=== PATIENT | female | born 1940 | race Caucasian/White ===

== ENCOUNTER → 2018-10-26 | Outpatient (CLI) | payer MEDICARE ==
[2018-10-26 11:23] LABS: BILIRUBIN,TOTAL 0.2 MG/DL (0.1-1.0); CALCIUM 9.3 MG/DL (8.5-10.1); CREATININE SERUM 1.01 MG/DL (0.60-1.30); POTASSIUM 4.9 MMOL/L (3.6-5.0); TOTAL PROTEIN 6.9 GM/DL (6.4-8.2)
== END ==
LOC: LAB FS 10:38
PROVIDERS: ATTEND Pediatrics
DX: E11.9 Type 2 diabetes mellitus without complications (principal)
CPT/HCPCS: 36415; 80053; 83036

== ENCOUNTER 2019-01-12 00:06 | Emergency (ER) | payer MEDICARE ==
[~2019-01-12] VITALS: Ht 157.5 cm; Wt 78.9 kg
--- OUTSIDE RECORDS SUMMARY | 2019-01-12 00:13 | XMS REPORT | Continuity of Care Document ---
Author Organization Unknown Address Unknown Phone Unavailable Allergies There is no data. Medications There is no data. Problems There is no data. Procedures There is no data. Results Test Result Range Comprehensive metabolic panel - 10/26/18 10:49 Serum or plasma sodium measurement (moles/volume) 142 mmol/L 135-145 Serum or plasma potassium measurement (moles/volume) 4.9 mmol/L 3.6-5.0 Serum or plasma chloride measurement (moles/volume) 102 mmol/L 98-107 Carbon dioxide 29 mmol/L 21-32 Serum or plasma anion gap determination (moles/volume) 11 mmol/L 5-14 Serum or plasma urea nitrogen measurement (mass/volume) 23 mg/dL 7-18 Serum or plasma creatinine measurement (mass/volume) 1.01 mg/dL 0.60-1.30 Serum or plasma urea nitrogen/creatinine mass ratio 23 NRG Serum or plasma creatinine measurement with calculation of estimated glomerular filtration rate 53 NRG Serum or plasma glucose measurement (mass/volume) 193 mg/dL 70-105 Serum or plasma calcium measurement (mass/volume) 9.3 mg/dL 8.5-10.1 Serum or plasma total bilirubin measurement (mass/volume) 0.2 mg/dL 0.1-1.0 Serum or plasma alkaline phosphatase measurement (enzymatic activity/volume) 81 U/L 40-136 Serum or plasma aspartate aminotransferase measurement (enzymatic activity/volume) 17 U/L 5-34 Serum or plasma alanine aminotransferase measurement (enzymatic activity/volume) 11 U/L 0-55 Serum or plasma protein measurement (mass/volume) 6.9 g/dL 6.4-8.2 Serum or plasma albumin measurement (mass/volume) 4.0 g/dL 3.2-4.5 CALCIUM CORRECTED 9.3 mg/dL 8.5-10.1 Hemoglobin A1c - 10/26/18 10:49 Blood hemoglobin A1C measurement (mass/volume) 8.7 % 4.0-5.6 MEAN BLOOD GLUCOSE 203 % <=126 Encounters ACCT No. Visit Date/Time Discharge Status Pt. Type Provider Facility Loc./Unit Complaint [id number] 10/26/2018 10:38:00 10/26/2018 23:59:59 CLS Outpatient BAIRON BALDERRAMA MD [facility] LAB FS E11.9 [id number] 01/12/2019 00:09:00 ACT Emergency MELLY PRESTON DO [facility] ER FS LEFT SIDE BACK PAIN
--- NOTE | 2019-01-12 00:17 | NUR ---
Pt ambulates to ED 6 without assistance or assistive device. Pt is wearing her home O2 at 2 1/2 L/m. Pt has COPD with prior pneumonia hx requiring her O2 dependence. See triage note.
--- NOTE | 2019-01-12 00:30 | ED Back Pain ---
General Stated Complaint: LEFT SIDE BACK PAIN Source of Information: Patient, RN Notes Reviewed Exam Limitations: No Limitations History of Present Illness Date Seen by Provider: Jan 12, 2019 Time Seen by Provider: 00:29 Location: Other Allergies and Home Medications Allergies Coded Allergies: No Known Drug Allergies (Unverified , 01/12/19) Past Sfogryo-Sltniy-Cnmdln Hx Patient Social History Recent Foreign Travel: No Contact w/Someone Who Travel: No Physical Exam Vital Signs Vital Signs - First Documented 01/12/19 00:17 Temp 98.3 Pulse 101 Resp 24 B/P (MAP) 150/71 (97) Pulse Ox 94 O2 Delivery Nasal Cannula O2 Flow Rate 2.50 Capillary Refill : Height, Weight, BMI Height: '" Weight: lbs. oz. kg; BMI Method: Progress/Results/Core Measures Results/Orders Lab Results Laboratory Tests Test 01/12/19 00:20 Range/Units Urine Color DARK YELLOW Urine Clarity CLEAR Urine pH 5.5 5-9 Urine Specific [place] >=1.030 1.016-1.022 Urine Protein TRACE H NEGATIVE Urine Glucose (UA) NEGATIVE NEGATIVE Urine Ketones TRACE H NEGATIVE Urine Nitrite NEGATIVE NEGATIVE Urine Bilirubin NEGATIVE NEGATIVE Urine Urobilinogen 0.2 NORMAL MG/DL Urine Leukocyte Esterase NEGATIVE NEGATIVE Urine RBC (Auto) TRACE H NEGATIVE Urine RBC 2-5 H /HPF Urine WBC 10-25 H /HPF Urine Squamous Epithelial Cells >50 H /HPF Urine Crystals PRESENT H /LPF Urine Calcium Oxalate Crystals FEW H /LPF Urine Bacteria FEW H /HPF Urine Casts NONE /LPF Urine Mucus NEGATIVE /LPF Urine Culture Indicated NO My Orders Orders - MELLY PRESTON DO Ua Culture If Indicated (01/12/19 00:28) Ketorolac Injection (Toradol Injection) (01/12/19 01:00) Ct Abd/Pelvis Wo(Kidney Stone) (01/12/19 00:59) Ct Lumbar Spine Wo (01/12/19 00:59) Dexamethasone Injection (Decadron Inject (01/12/19 02:30) Hydrocodone/Apap 10/325 Tablet (Lortab 1 (01/12/19 02:30) Medications Given in ED Current Medications Medications Dose Ordered Sig/Micaela Route Start Time Stop Time Status Last Admin Dose Admin Ketorolac Tromethamine 15 mg ONCE ONCE IM 01/12/19 01:00 01/12/19 01:01 DC 01/12/19 01:07 15 MG Vital Signs/I&O 01/12/19 01/12/19 00:17 01:07 Temp 98.3 98.3 Pulse 101 Resp 24 B/P (MAP) 150/71 (97) Pulse Ox 94 O2 Delivery Nasal Cannula O2 Flow Rate 2.50 Departure Impression Primary Impression: Acute left flank pain Additional Impressions: Pancreatic mass Pulmonary nodules/lesions, multiple Disposition: 01 HOME, SELF-CARE Condition: Stable Departure-Patient Inst. Decision time for Depature: 02:23 Referrals: BAIRON BALDERRAMA MD (PCP/Family) Primary Care Physician Patient Instructions: Flank Pain (DC), Multiple Pulmonary Nodules Add. Discharge Instructions: NEED TO CONTACT DR. BALDERRAMA'S OFFICE THIS AM, 01/11,, TO ARRANGE FOLLOW UP/FURTHER EVALUATION OF YOUR ABNORMAL CAT SCAN OBTAINED TONIGHT. Scripts Hydrocodone Bit/Acetaminophen (LORTAB 7.5 MG TABLET) 1 Ea Tablet 1 EA PO Q6H PRN for FLANK PAIN, #20 TAB 0 Refills Prov: MELLY PRESTON DO 01/12/19 MELLY PRESTON DO Jan 12, 2019 00:30
[2019-01-12 00:51] LABS: CLARITY,URINE CLEAR; COLOR,URINE DARK YELLOW; GLUCOSE, URINE (UA) NEGATIVE (NEGATIVE); PH,URINE 5.5 (5-9); PROTEIN,URINE TRACE (NEGATIVE)
[2019-01-12 00:52] LABS: BACTERIA,URINE FEW /HPF; BILIRUBIN,URINE NEGATIVE (NEGATIVE); CALCIUM OXALATE CRYSTALS,UR FEW /LPF; KETONES,URINE TRACE (NEGATIVE); LEUKOCYTE ESTERASE ,URINE NEGATIVE (NEGATIVE); NITRITE,URINE NEGATIVE (NEGATIVE); SQUAMOUS EPITHELIAL CELL,UR >50 /HPF; UROBILINOGEN,URINE 0.2 MG/DL (NORMAL)
[2019-01-12] MEDS ORDERED: KETOROLAC 30 MG/ML VIAL IM ONE (01:00)
[2019-01-12] MEDS ORDERED: ALBU18HF2 (01:22)
[2019-01-12] MEDS ORDERED: ALBU2.5V4 (01:22)
[2019-01-12] MEDS ORDERED: SIMV80TA21 (01:22)
[2019-01-12] MEDS ORDERED: ROPI0.253 (01:22)
[2019-01-12] MEDS ORDERED: LEVO88TA54 (01:22)
[2019-01-12] MEDS ORDERED: GLIM1TAB (01:22)
--- NOTE | 2019-01-12 01:30 | NUR ---
Resting in room with family present, pt is pending all her results.
[2019-01-12] MEDS ORDERED: HYDR-34 PO (02:27)
[2019-01-12] MEDS ORDERED: DEXAMETHASONE 10 MG/ML (DECADRON) 1 ML VIAL IM ONE (02:30)
[2019-01-12] MEDS ORDERED: HYDROcodone/APAP 10 MG/325 MG (LORTAB) TAB PO ONE (02:30)
[2019-01-12 02:38] VITALS: BP 125/56
--- NOTE | 2019-01-12 02:38 | NUR ---
Pt discharged to home after review of home instructions read and discussed. Pt was handed the Hydrocodone Rx.
--- NOTE | 2019-01-12 08:02 | Diagnostic Imaging Report ---
PROCEDURE: CT urinary tract, rule out kidney stone. TECHNIQUE: Multiple contiguous axial images were obtained through the abdomen and pelvis without the use of intravenous contrast. Auto Exposure Controls were utilized during the CT exam to meet ALARA standards for radiation dose reduction. INDICATION: Left lower back pain x2 days. CORRELATION STUDY: None FINDINGS: Bilateral spiculated pulmonary masses noted at the lower lobes. Largest on the left measured approximately 16 mm on the right approximately 17 mm. Findings highly suspicious for pulmonary metastatic disease. Partial visualization of bilateral breast implants. Heart size enlarged. Coronary artery and cardiac valvular calcification. Very small hiatal hernia. Unenhanced liver, spleen, appearing unremarkable. Gallbladder not visualized. There is question approximately 18 mm slightly irregular low-attenuation lesion the pancreas. No definitive peripancreatic inflammatory changes. Additional questionable low-attenuating lesion at the proximal body of the pancreas projecting superiorly measures approximately 17 mm. Some diffuse thinning and atrophic change about the kidneys. No obstructing stone. Dense aortic wall calcification. Infrarenal abdominal aortic aneurysm is present the greatest dimension at 3.9 cm. There does appear to be displaced intimal calcification suggesting chronic dissection. Additional 2.4 cm rounded calcification of the left upper quadrant that may reflect a splenic artery aneurysm. Gastrointestinal tract demonstrates moderate severity fecal retention. No obstruction or inflammation. Colonic diverticulosis is present. No abdominal ascites or free air. No pathological or central retroperitoneal lymph nodes. Urinary bladder decompressed. Uterus absent. IMPRESSION: 1. Bilateral pulmonary nodules highly concerning for pulmonary metastatic disease. 2. Indeterminate low attenuating foci within the pancreas. This finding is nonspecific, possibility of pancreatic neoplasm not excluded. Correlation with postcontrast imaging would be recommended. 3. The infrarenal abdominal aortic aneurysm likely chronic dissection. Maximum dimension just under 4 cm in size. Preliminary interpretation provided by stat rads. Dictated by: Dictated on workstation # [id number]
--- NOTE | 2019-01-12 08:09 | Diagnostic Imaging Report ---
PROCEDURE: CT lumbar spine without contrast. TECHNIQUE: Multiple contiguous axial images were obtained through the lumbar spine without the use of intravenous contrast. Sagittal and coronal reformations were then performed. Auto Exposure Controls were utilized during the CT exam to meet ALARA standards for radiation dose reduction. INDICATION: Left lower back pain x2 days. Denies any known recent injury. CORRELATION STUDY: None FINDINGS: Examination compromised by patient motion artifact. Reformatted images in directly normal alignment. Lumbar vertebral body height overall appear to be maintained with evidence for acute appearing compression deformity. Multilevel degenerative changes are present. This includes moderate loss of disc space height at the L5-S1 level with a vacuum disc phenomena present. Multilevel areas of canal and foraminal stenosis present. At the L3-L4 level, there is mild/moderate central canal stenosis and moderate bilateral foraminal narrowing. At L4-5 level, and moderate to severe canal stenosis predominantly owing to the diffuse disc bulging combined with facet and ligamentum hypertrophy. L5-S1 levels demonstrate moderate diffuse disc bulge with at least mild central canal stenosis and moderate to severe bilateral foraminal narrowing. Rather prominent endplate spurring present. Various degrees of hypertrophic facet arthropathy are present. Calcification of the abdominal aorta with aneurysmal dilatation incompletely visualized on this study. Calcification in the left upper quadrant is also noted could be reflective of underlying splenic artery calcification. Colonic diverticulosis. IMPRESSION: 1. Negative for acute bony abnormality about the lumbar spine. 2. Rather significant areas of canal and foraminal stenosis. If further assessment is desired, then MRI lumbar spine would be recommended for further assessment. Dictated by: Dictated on workstation # [id number]
== END 2019-01-12 02:38 | disposition home or self-care (01) ==
LOC: EDUNIT# 00:06 → ER FS 00:09
DX: K86.89 Other specified diseases of pancreas (principal); R91.8 Other nonspecific abnormal finding of lung field
CPT/HCPCS: 72131; 74176; 81000

== ENCOUNTER → 2019-01-21 | Outpatient (CLI) | payer MEDICARE ==
[~2019-01-21] MED LIST: ALBU18HF2; ALBU2.5V4; CATHETER FLUSH 10 ML SYR IV PRN; GLIM1TAB; HOLD METFORMIN - RECEIVED CONTRAST 20 ML VIAL IV SCH; HYDR-34 PO; IOHEXOL 350 MG/ML 100 ML (OMNIPAQUE 350) VIAL IV ONE; LEVO88TA54; NS 100 ML (IVPB) BAG IV ONE; ROPI0.253; SIMV80TA21
[2019-01-21 16:42] LABS: CALCIUM 9.1 MG/DL (8.5-10.1); CREATININE SERUM 1.11 MG/DL (0.60-1.30); POTASSIUM 4.6 MMOL/L (3.6-5.0)
--- NOTE | 2019-01-21 17:52 | Diagnostic Imaging Report ---
PROCEDURE: CT chest and abdomen with contrast. TECHNIQUE: Multiple contiguous axial images were obtained through the chest and abdomen after the administration of intravenous contrast. Auto Exposure Controls were utilized during the CT exam to meet ALARA standards for radiation dose reduction. INDICATION: Lung mass. COMPARISON: 01/12/2019. FINDINGS: CT chest: Cardiomediastinal structures show normal heart size. There is enlargement of the main pulmonary arterial trunk, which can be seen with underlying pulmonary arterial hypertension. There is also advanced calcified aortic and coronary atherosclerosis. Note is made of occlusion of the proximal left subclavian artery with distal reconstitution likely from retrograde flow through the left vertebral artery. No pathologically enlarged or morphologically abnormal adenopathy is seen within the mediastinum. There is however an enlarged right hilar lymph node that measures 1.3 x 1.8 cm. No abnormal axillary adenopathy is seen. There is no abnormal adenopathy of the left hilum. Evaluation of the lung barkley demonstrates juxtapleural nodular solid lesion within the posterolateral margins of the right lower lobe that measures 1.4 x 1.3 cm. Soft tissue nodule is also seen within the posterolateral margins of the left upper lobe and measures 1.2 x 1.5 cm (image 33, series 2). Small juxtapleural micronodule is also seen within the posterolateral left lower lobe and measures 0.8 cm (image 32, series 2). Punctate subpleural 4-5 mm micronodule is also seen within the lateral margins of the left upper lobe (image 20, series 2). Finally, subpleural 1.2 x 2.1 cm nodular density is seen within the posterior left upper lobe (image 13, series 2). There is background moderate emphysematous disease. There is no focal consolidation, large effusion, or pneumothorax. Osseous structures show age-related degenerative changes. No lytic or blastic bony lesion is identified. CT abdomen: There is diffuse advanced calcified and noncalcified atherosclerotic disease of the abdominal aorta as well. Infrarenal abdominal aorta shows focal aneurysmal dilatation as it measures 3.9 x 3 cm (image 75, series 2). There is also a peripherally calcified structure within the left upper abdominal quadrant. This appears to be separate from the splenic artery and may be extending from the left adrenal gland. Findings could be on the basis of previous adrenal hemorrhage. There is also some asymmetric nodular fullness of the left adrenal gland. The area in question measures 2.3 x 1.9 x 1.4 cm. The kidneys show small cystic-appearing foci posteriorly on the right. These however are too small to adequately characterize. Otherwise, kidneys, right adrenal gland, spleen, and liver have a normal appearance. Evaluation of the pancreas demonstrates abnormal area of nodular hypoenhancement within the pancreatic head that measures 1.4 x 1.6 cm (image 66, series 2). There is a 1.5 x 1.3 cm nodular hypodensity interposed between the portal vein and IVC, which could represent prominent lymph node. Several other smaller hypodensities are also noted along the anterior superior margins of the pancreas, but of uncertain etiology and significance (image 60, series 2). Included small bowel loops are nondistended. Included portions of the colon show diverticulosis, but no CT evidence of acute diverticulitis. Cecum and appendix are not included on this exam. There is no loculated fluid collection, free fluid, or free air within the pelvis. No abnormal retroperitoneal adenopathy is seen. Osseous structures show no acute abnormalities. IMPRESSION: 1. Multiple mass-like lesions are seen scattered throughout the bilateral lungs. Findings could be on the basis of primary lung neoplasm with contralateral metastatic disease. Metastatic disease to the lungs from other primary is also a consideration. 2. Prominent right hilar lymph node concerning for metastatic disease as well. 3. Hypodensity within the pancreatic head concerning for potential primary pancreatic malignancy as well. 4. Several hypodensities about the pancreas, which may be on the basis of metastatic local lymph nodes. Correlation with CT/PET is advised. 5. Advanced calcified aortic and coronary atherosclerosis. 6. Moderate emphysematous disease. 7. Enlargement of the main pulmonary arterial trunk. Findings can be seen with underlying pulmonary arterial hypertension. 8. Nodular enlargement of the left adrenal gland, also concerning for metastatic disease 9. Focal aneurysmal dilatation of the infrarenal abdominal aorta 10. Colonic diverticulosis, but no CT evidence of acute diverticulitis. 11. Occlusion of the proximal left subclavian artery. Again, there is distal reconstitution potentially from retrograde flow from the left vertebral artery. Dictated by: Dictated on workstation # [id number]
== END ==
LOC: RAD 16:09
PROVIDERS: ATTEND Pediatrics
DX: J43.9 Emphysema, unspecified (principal); K86.89 Other specified diseases of pancreas; R59.0 Localized enlarged lymph nodes; I70.0 Atherosclerosis of aorta; I25.10 Atherosclerotic heart disease of native coronary artery without angina pectoris; I28.8 Other diseases of pulmonary vessels; E27.8 Other specified disorders of adrenal gland; I71.4 Abdominal aortic aneurysm, without rupture; K57.30 Diverticulosis of large intestine without perforation or abscess without bleeding; I65.02 Occlusion and stenosis of left vertebral artery; R91.8 Other nonspecific abnormal finding of lung field
CPT/HCPCS: 36415; 71260; 74160; 80048

== ENCOUNTER → 2019-02-02 | Outpatient (CLI) | payer MEDICARE ==
[~2019-02-02] MED LIST changes: -CATHETER FLUSH 10 ML SYR IV PRN; -HOLD METFORMIN - RECEIVED CONTRAST 20 ML VIAL IV SCH; -IOHEXOL 350 MG/ML 100 ML (OMNIPAQUE 350) VIAL IV ONE; -NS 100 ML (IVPB) BAG IV ONE
--- NOTE | 2019-02-04 15:59 | Diagnostic Imaging Report ---
EXAM: PET/CT INDICATION: Lung cancer initial EXAMINATION: After intravenous administration of 13.09 mCi of F18-FDG, a series of overlapping emission and transmission PET images was obtained. In the coronal, transaxial and sagittal planes, the area imaged extended from the skull base through the upper thighs. PET images were obtained one hour after injection. Height: 5 feet, 3 inches. Weight: 164 pounds. COMPARISON: There are no prior PET/CT examinations available for comparison. The CT chest, abdomen and pelvis exams of 01/21/2019 noted mass lesions involving both lungs as well as a prominent right hilar lymph node. There is also a 1.4 x 1.6 CM area of diminished density within the head of the pancreas and the possibility that this was related to a pancreatic neoplasm was also raised. On the study, the right hilum is hypermetabolic with a maximum SUV of 5.9. I do suspect that there is an underlying neoplastic process in this area. The mass in the periphery of the right lower lobe seen previously is also hypermetabolic with a maximum SUV of 5.2. The irregular parenchymal density along the periphery of the left upper lung measuring 1.2 x 2.1 CM previously is also hypermetabolic with a maximum SUV of 3.0. There is also increased metabolic activity within the proximal left eighth rib. The maximum SUV in this area is 3.4 and I do suspect that this represents a metastatic skeletal focus. There is also an isolated hypermetabolic focus in the inferior pubic ramus on the left. This has a maximum SUV of 4.8 and this too is most likely neoplastic in nature. There is no other hypermetabolic activity to suggest the presence of neoplasm. Specifically, there is no hypermetabolic activity associated with the area of diminished density in the head of the pancreas. The CT images failed to show any sign of an acute intracranial abnormality. IMPRESSION: 1. There is increased hypermetabolic activity within the right hilum and in several pulmonary nodules. Most likely these findings are related to a primary bronchogenic carcinoma. Bronchoscopy would be recommended for further study. 2. There is also increased hypermetabolic activity within the left eighth rib and the inferior pubic ramus on the left. These findings should be considered neoplastic as well. 3. There is no other hypermetabolic activity to suggest malignancy. In particular there is no hypermetabolic activity associated with the head of the pancreas." Dictated by: Dictated on workstation # [id number]
== END ==
LOC: RAD 11:53
PROVIDERS: ATTEND Pediatrics
DX: K86.89 Other specified diseases of pancreas (principal); R91.8 Other nonspecific abnormal finding of lung field

== ENCOUNTER 2019-02-15 05:58 | Outpatient (CLI) | payer MEDICARE ==
[~2019-02-15] VITALS: Ht 157.5 cm; Wt 72.6 kg
[~2019-02-15 05:58] MED LIST changes: -ALBU18HF2; +ALBU18HF2 IH; -ALBU2.5V4; +ALBU2.5V4 IH; -GLIM1TAB; +GLIM1TAB PO; -LEVO88TA54; +LEVO88TA54 PO; -ROPI0.253; +ROPI0.253 PO; -SIMV80TA21; +SIMV80TA21 PO
[2019-02-15] MEDS ORDERED: PROM25TA14 PO (10:45)
[2019-02-15] MEDS ORDERED: HYDR-3816 PO (10:45)
== END 2019-02-15 10:56 | disposition home or self-care (01) ==
LOC: PREOP 05:58
PROVIDERS: ATTEND Internal Medicine Critical Care Medicine
DX: Z01.818 Encounter for other preprocedural examination (principal)

== ENCOUNTER 2019-03-03 08:52 | Outpatient (RCR) | payer MEDICARE ==
[2019-02-10 10:13] LABS: BASOPHILS % (AUTO) 0 % (0-10); EOSINOPHILS # (AUTO) 0.1 10^3/uL (0.0-0.3); EOSINOPHILS % (AUTO) 1 % (0-10); HEMATOCRIT 46 % (35-52); HEMOGLOBIN 14.4 G/DL (11.5-16.0); LYMPHOCYTES # (AUTO) 2.6 X 10^3 (1.0-4.0); LYMPHOCYTES % (AUTO) 25 % (12-44); MEAN CORPUSCULAR HEMOGLOBIN 28 PG (25-34); MEAN CORPUSCULAR HGB CONC 31 G/DL (32-36); MEAN CORPUSCULAR VOLUME 89 FL (80-99); MEAN PLATELET VOLUME 10.3 FL (7.4-10.4); MONOCYTES # (AUTO) 0.7 X 10^3 (0.0-1.0); MONOCYTES % (AUTO) 6 % (0-12); NEUTROPHILS # (AUTO) 6.8 X 10^3 (1.8-7.8); NEUTROPHILS % (AUTO) 67 % (42-75); PLATELET COUNT 150 10^3/uL (130-400); WHITE BLOOD COUNT 10.1 10^3/uL (4.3-11.0)
[2019-02-10 10:29] LABS: BILIRUBIN,TOTAL 0.3 MG/DL (0.1-1.0); CALCIUM 9.7 MG/DL (8.5-10.1); CREATININE SERUM 1.23 MG/DL (0.60-1.30); POTASSIUM 4.8 MMOL/L (3.6-5.0); TOTAL PROTEIN 7.2 GM/DL (6.4-8.2)
[~2019-03-03 08:52] MED LIST changes: +HYDR-3816 PO; +PROM25TA14 PO
[2019-03-03 10:33] LABS: BASOPHILS % (AUTO) 0 % (0-10); EOSINOPHILS # (AUTO) 0.1 10^3/uL (0.0-0.3); EOSINOPHILS % (AUTO) 1 % (0-10); HEMATOCRIT 41 % (35-52); HEMOGLOBIN 12.5 G/DL (11.5-16.0); LYMPHOCYTES # (AUTO) 1.9 X 10^3 (1.0-4.0); LYMPHOCYTES % (AUTO) 18 % (12-44); MEAN CORPUSCULAR HEMOGLOBIN 28 PG (25-34); MEAN CORPUSCULAR HGB CONC 31 G/DL (32-36); MEAN CORPUSCULAR VOLUME 91 FL (80-99); MEAN PLATELET VOLUME 11.4 FL (7.4-10.4); MONOCYTES # (AUTO) 0.7 X 10^3 (0.0-1.0); MONOCYTES % (AUTO) 6 % (0-12); NEUTROPHILS # (AUTO) 8.1 X 10^3 (1.8-7.8); NEUTROPHILS % (AUTO) 75 % (42-75); PLATELET COUNT 131 10^3/uL (130-400); RED CELL DISTRIBUTION WIDTH 16.6 % (10.0-14.5); WHITE BLOOD COUNT 10.7 10^3/uL (4.3-11.0)
[2019-03-03 10:53] LABS: ALBUMIN 3.4 GM/DL (3.2-4.5); BILIRUBIN,TOTAL 0.4 MG/DL (0.1-1.0); CALCIUM 8.8 MG/DL (8.5-10.1); CREATININE SERUM 1.11 MG/DL (0.60-1.30); POTASSIUM 5.1 MMOL/L (3.6-5.0); TOTAL PROTEIN 6.4 GM/DL (6.4-8.2)
== END 2019-05-11 | disposition home or self-care (01) ==
LOC: ONC 08:52
PROVIDERS: ATTEND Internal Medicine Hematology & Oncology
DX: R91.8 Other nonspecific abnormal finding of lung field (principal); M89.9 Disorder of bone, unspecified; J44.9 Chronic obstructive pulmonary disease, unspecified; F17.210 Nicotine dependence, cigarettes, uncomplicated; E05.00 Thyrotoxicosis with diffuse goiter without thyrotoxic crisis or storm; M54.5 Low back pain; Z95.5 Presence of coronary angioplasty implant and graft; I25.2 Old myocardial infarction; H35.30 Unspecified macular degeneration; E11.9 Type 2 diabetes mellitus without complications; Z79.84 Long term (current) use of oral hypoglycemic drugs; Z79.82 Long term (current) use of aspirin; Z79.899 Other long term (current) drug therapy; Z99.81 Dependence on supplemental oxygen; Z80.1 Family history of malignant neoplasm of trachea, bronchus and lung
CPT/HCPCS: 36415; 80053; 83615; 85025; 99213; 99214